=== PATIENT | male | born 1960 | race Caucasian/White ===

== ENCOUNTER 2024-12-12 16:05 | Outpatient (RCR) | payer BC, SELFPAY | END 2024-12-16 23:59 | LOC: NS 16:05 | PROVIDERS: PCP Internal Medicine; Referring Provider Internal Medicine; Visit Provider Internal Medicine | DX: R73.01 Impaired fasting glucose (principal); E66.811 Obesity, class 1; E66.09 Other obesity due to excess calories; Z68.30 Body mass index [BMI] 30.0-30.9, adult; Z71.3 Dietary counseling and surveillance | CPT/HCPCS: 97802 ==